=== PATIENT | male | born 1980 | race Caucasian/White ===

== ENCOUNTER 2021-06-09 12:54 | Emergency (ER) | payer OTHER ==
[~2021-06-09] VITALS: Ht 170.2 cm; Wt 86.2 kg
[2021-06-09] MEDS ORDERED: HYDROCODON-ACE1 EAC7 PO (13:47)
[2021-06-09] MEDS ORDERED: AMOXICILLIN 50500 MG PO (13:47)
[2021-06-09 13:54] VITALS: BP 113/80
== END 2021-06-09 13:54 | disposition home or self-care (01) ==
LOC: M.ERS 12:54
DX: K04.7 Periapical abscess without sinus (principal); F17.210 Nicotine dependence, cigarettes, uncomplicated

== ENCOUNTER 2021-07-08 19:55 | Emergency (ER) | payer BC ==
[~2021-07-08] VITALS: Ht 172.7 cm; Wt 81.7 kg
[~2021-07-08 19:55] MED LIST: AMOXICILLIN 50500 MG PO; HYDROCODON-ACE1 EAC7 PO
[2021-07-08] MEDS ORDERED: NORFLEX100 MG PO (22:04)
[2021-07-08] MEDS ORDERED: MEDROLDOSEPACK PO (22:04)
[2021-07-08 22:11] VITALS: BP 138/88
== END 2021-07-08 22:11 | disposition home or self-care (01) ==
LOC: M.ERS 19:55
DX: M26.602 Left temporomandibular joint disorder, unspecified (principal); F17.210 Nicotine dependence, cigarettes, uncomplicated